=== PATIENT | male | born 1970 | race Caucasian/White ===

== ENCOUNTER 2024-02-26 16:52 | Emergency (ER) | payer SELFPAY ==
[~2024-02-26] VITALS: Ht 175.3 cm; Wt 79.0 kg
[2024-02-26 16:55] VITALS: TEMP 97; O2SAT 98
[2024-02-26 17:00] VITALS: BP 104/58; PULSE 84; RESP 16
[2024-02-26] MEDS ORDERED: NOREPINEPHRINE 8MG/250ML PMX 250 ML IV ONE (17:13)
[2024-02-26] MEDS ORDERED: AMIODARONE HCL 900 MG in DEXT 5% WATER 482 ML IV PRN (17:15)
[2024-02-26] MEDS ORDERED: NOREPINEPHRINE 8MG/250ML PMX 250 ML IV PRN (17:15)
== END 2024-02-26 17:16 ==
LOC: ER 16:52
DX: I46.9 Cardiac arrest, cause unspecified (principal)
CPT/HCPCS: 71045; 31500; 36680; 92950; 99285; J3490; Z7610; J0282; J7060